=== PATIENT | female | born 1950 | race Asian ===

== ENCOUNTER → 2016-08-30 | Outpatient (CLI) | payer OTHER ==
[~2016-08-30] MED LIST: CALCIUM PO; PANTOPRAZOLE PO; SIMVASTATIN40 MG PO; [UNRECOGNIZED DRUG - OTHER] PO; [UNRECOGNIZED DRUG - OTHER] PO
--- NOTE | ~2016-08-30 | MY11 ---
[facility] A Service of [facility] RADIOLOGY TEXT RESULTS PATIENT: JULIUS GUILLAUME LOCATION: [facility] : 54 UNIT #: [id number] AGE: [address]: Christine Real MD SEX: F ORDER DR: [id number] [facility]. [place], [place] [address] [id number] O MR#: [id number] Acc #: [id number] NAME: JULIUS GUILLAUME : 1950 SEX: F STUDY DATE/TIME: 08/30/2016 7:47 UNIT: [facility] ROOM: STUDY DESCRIPTION: MY Mammogram Screening Dig Des Attending Physician: Christine Real M.D. Referring Physician: Christine Real M.D. Ordering Physician: Christine Real M.D. Primary Care Physician: Christine Real M.D. MEDICAL IMAGING REPORT This report is preliminary unless electronic signature is present EXAM Digital screening mammogram, 08/30/2016 HISTORY 66-year-old woman no risk elevation. Annual screening. COMPARISON Mammograms date to 11/03/2007 with most recent screening comparison 02/07/2015. FINDINGS Digital imaging of each breast was completed utilizing standard craniocaudal and mediolateral-oblique projections. Review and interpretation of digital mammograms include a second review in conjunction with FDA-approved CAD device. There is an overall increase in the parenchymal presentation bilaterally with a generalized fibronodular pattern in each breast. There are no breast masses and I see no asymmetry in the parenchymal presentation. There are no suspicious microcalcifications and I see no architectural disturbance. IMPRESSION Benign mammogram. One-year followup recommended. Patients over the age of 40 are entered into a reminder system with target due date for the next mammogram. A result letter will also be sent to the patient. BIRADS: 2 Benign finding Dictated by... Toney Galvan M.D. THIS IS AN ELECTRONICALLY VERIFIED REPORT [facility] A Service of [facility] RADIOLOGY TEXT RESULTS PATIENT: JULIUS GUILLAUME LOCATION: [facility] : 54 UNIT #: [id number] AGE: [address]: Christine Real MD SEX: F ORDER DR: Toney Galvan M.D. at 08/30/2016 10:26 AM Madalyn TD: 08/30/2016 10:24 JOB #: [id number] MEDICAL IMAGING REPORT Page 1 of 1 COPY
== END | disposition home or self-care (01) ==
LOC: CWCC 07:27
DX: Z12.31 Encounter for screening mammogram for malignant neoplasm of breast (principal)
CPT/HCPCS: G0202

== ENCOUNTER → 2016-10-06 | Outpatient (CLI) | payer OTHER ==
--- NOTE | ~2016-10-06 | MR2 ---
[facility] A Service of [facility] RADIOLOGY TEXT RESULTS PATIENT: JULIUS GUILLAUME [facility] : 54 UNIT #: [id number] AGE: [address]: Christine Real MD SEX: F ORDER DR: [id number] [facility] [address]. [place], [place] [address] [id number] O MR#: [id number] Acc #: [id number] NAME: JULIUS GUILLAUME : 1950 SEX: F STUDY DATE/TIME: 10/06/2016 8:14 UNIT: [facility] ROOM: STUDY DESCRIPTION: MR Abdomen WWo Cont Attending Physician: Christine Real M.D. Referring Physician: Christine Rela M.D. Ordering Physician: Christine Real M.D. Primary Care Physician: Christine Real M.D. MRI CENTER REPORT This report is preliminary unless electronic signature is present. EXAM MRI abdomen with and without contrast. INDICATION Follow up indeterminate left renal lesion. Observation for left renal mass. PROCEDURE Multiplanar, multisequence, MR imaging of the abdomen prior to and following 10 mL of MultiHance. COMPARISON CT from 04/07/2015. FINDINGS ABDOMEN WITHOUT CONTRAST: Liver has normal size and morphology. The spleen, adrenal glands, pancreas, gallbladder, biliary system bowel loops have normal signal. There is a lobulated complex cystic lesion in the anterior left mid kidney that measures 2.2 cm, not significantly changed from the previous study. Otherwise kidneys are unremarkable. ABDOMEN WITH CONTRAST: The left renal cystic mass does show some internal enhancing septations. Overall appearance is unchanged from the previous study. It is not significantly changed dating back to at least 08/14/2014. IMPRESSION Overall stable appearance of the complex cystic lesion in the left kidney. It measures up to 2.2 cm and has some internal enhancing septations and lobulated contour. Stability favors that this represents a benign complex cyst. Cystic renal cell carcinoma is difficult to exclude and recommend continued attention on followup in 6-12 months. [facility] A Service of [facility] RADIOLOGY TEXT RESULTS PATIENT: JULIUS GUILLAUME [facility] : 54 UNIT #: [id number] AGE: [address]: Christine Real MD SEX: F ORDER DR: Dictated by... Tre Saleem M.D. THIS IS AN ELECTRONICALLY VERIFIED REPORT Tre Saleem M.D. at 10/07/2016 10:45 AM JEANINE/craig TD: 10/06/2016 10:24 JOB #: [id number] MRI CENTER REPORT Page 1 of 1 COPY
[2016-10-06 09:05] LABS: POC - CREATININE 0.73 mg/dL (0.44-1.03); POC - GFR >60.0 mL/min (>60)
== END | disposition home or self-care (01) ==
LOC: CMRI 07:23
PROVIDERS: Internal Medicine
DX: N28.1 Cyst of kidney, acquired (principal)
CPT/HCPCS: 74183; 82565; A9577